=== PATIENT | female | born 1955 | race Caucasian/White ===

== ENCOUNTER 2017-10-09 16:07 | Inpatient (IN) | payer MEDICARE, MEDICAID ==
[~2017-10-09] VITALS: Ht 167.6 cm; Wt 98.1 kg
[~2017-10-09 16:07] MED LIST: ALBUTEROL0.83 MG/ML IH; AMBIEN 10MG10 MG PO; ASPIRIN E.C. 8181 MG PO; ATROVENT I0.2 MG/1 M IH; BROVANA15 MCG/2 M IH; CLARITIN 1010 MG/TAB PO; COREG12.5 MG PO; COZAAR 50MG50 MG/TAB PO; DESYREL 50MG50 MG PO; FLEXERIL 1010 MG/TAB PO; FOLIC ACID 40400 MCG PO; KLOR-CON 1010 MEQ PO; LANTUS100 U/ML SQ; LASIX 40MG TABL40 MG PO; LIPITOR 40MG TA40 MG PO; MELATONIN1 MG PO; NATURAL IRON65 MG PO; NORCO 325 MG-7.1 TAB PO; PEPCID 20MG TAB20 MG PO; PROAIR HFA0.09 MG/AC IH; PULMICORT0.5 MG/2 M IH; RELAFEN750 MG PO; REQUIP 0.5MG0.5 MG PO; RT SPIRIVA18 MCG IH; THEO-24 20200 MG/CAP PO; TOPAMAX 25MG25 M1 PO; TRICOR145 MG PO; VITAMIN C500 MG PO; WOMEN'S DAILY1 TAB PO; ZOLOFT 100MG100 MG PO
[2017-11-11] MEDS ORDERED: DALIRESP500 MCG PO (11:04)
[2017-11-11] MEDS ORDERED: BREO IH (11:04)
[2017-11-11] MEDS ORDERED: VENTOLIN0.09 MG IH (11:04)
[2017-11-11] MEDS ORDERED: NEURONTIN300 MG/CAP PO (11:05)
[2017-11-12] VITALS (10 sets, daily range): BP systolic 99–137; BP diastolic 49–76; PULSE 76–92; TEMP 97.3–99.7
[2017-11-12] MEDS ORDERED: KLOR-CON 1010 MEQ PO (05:42)
[2017-11-12] MEDS ORDERED: BREO IH (06:02)
[2017-11-12] MEDS ORDERED: NORCO 325 MG-51 TAB PO (06:06)
[2017-11-13 00:54] VITALS: BP 143/70; PULSE 93; TEMP 100; TEMP 99.4
[2017-11-13 04:00] VITALS: BP 116/55; PULSE 90; TEMP 98.2
[2017-11-13 06:55] LABS: HEMATOCRIT 34.2 % (37.0-47.0); HEMOGLOBIN 10.8 g/dl (12.5-16.0)
[2017-11-13 07:47] VITALS: BP 130/65; PULSE 85; TEMP 98.3
[2017-11-13 12:41] VITALS: BP 120/58; PULSE 66; TEMP 98.4
[2017-11-13 16:17] VITALS: BP 123/69; PULSE 91
[2017-11-13 20:00] VITALS: BP 134/59; PULSE 95; TEMP 98.2
[2017-11-14] VITALS: BP 131/50; PULSE 93; TEMP 98.2
[2017-11-14 03:59] VITALS: BP 118/68; PULSE 86; TEMP 98.2
[2017-11-14 07:17] LABS: HEMATOCRIT 32.2 % (37.0-47.0); HEMOGLOBIN 10.1 g/dl (12.5-16.0)
[2017-11-14 08:07] VITALS: BP 136/68; PULSE 94; TEMP 98.8
[2017-11-14 16:00] VITALS: BP 111/64; PULSE 109; TEMP 99.7
[2017-11-14 20:00] VITALS: BP 128/62; PULSE 106; TEMP 98
[2017-11-15 04:34] VITALS: BP 107/44; PULSE 84; TEMP 98.7
[2017-11-15 08:04] VITALS: BP 110/75; PULSE 90; TEMP 98.8
[2017-11-15 10:30] VITALS: BP 110/75; PULSE 90; TEMP 98.8
== END 2017-11-15 10:56 | disposition swing bed (61) | DRG 470 ==
LOC: JCC 11-12 05:26
PROVIDERS: Orthopaedic Surgery
PROC: 0SRC0J9 Replacement of Right Knee Joint with Synthetic Substitute, Cemented, Open Approach (ICD-10-PCS; principal; 2017-11-12 07:30)
DX: M17.11 Unilateral primary osteoarthritis, right knee (principal); E11.9 Type 2 diabetes mellitus without complications; J44.9 Chronic obstructive pulmonary disease, unspecified; F17.210 Nicotine dependence, cigarettes, uncomplicated; Z79.84 Long term (current) use of oral hypoglycemic drugs
CPT/HCPCS: C1713; C1776; J0690; J1815; J2175; J2250; J2704; J3010; J3410